=== PATIENT | female | born 1945 | race Caucasian/White ===

== ENCOUNTER → 2017-08-03 | Outpatient (CLI) | payer MEDICARE ==
[~2017-08-03] MED LIST: ATENOLOL25 MG PO; B12,B-12,B 12500 MC1 PO; MECLIZINE HCL25 M2 PO; ONDANSETRON H2 MG/ML IV; PINDOLOL5 MG PO; PREDNISONE10 MG PO; Zofran4 MG PO
== END | disposition home or self-care (01) ==
LOC: MAMMO 14:47
DX: Z12.31 Encounter for screening mammogram for malignant neoplasm of breast (principal)

== ENCOUNTER → 2017-08-17 | Outpatient (CLI) | payer MEDICARE | END | disposition home or self-care (01) | LOC: MAMMO 01:24 | DX: N64.89 Other specified disorders of breast (principal); R92.8 Other abnormal and inconclusive findings on diagnostic imaging of breast ==

== ENCOUNTER → 2018-01-05 | Outpatient (CLI) | payer MEDICARE | END | disposition home or self-care (01) | LOC: MAMMO 00:34 | DX: R92.8 Other abnormal and inconclusive findings on diagnostic imaging of breast (principal) ==

== ENCOUNTER → 2019-01-26 | Outpatient (CLI) | payer MEDICARE | END | disposition home or self-care (01) | LOC: RAD 00:29 → MAMMO 13:30 | DX: Z12.31 Encounter for screening mammogram for malignant neoplasm of breast (principal); M81.8 Other osteoporosis without current pathological fracture; R92.8 Other abnormal and inconclusive findings on diagnostic imaging of breast; N95.9 Unspecified menopausal and perimenopausal disorder; E55.9 Vitamin D deficiency, unspecified; M19.90 Unspecified osteoarthritis, unspecified site; M85.89 Other specified disorders of bone density and structure, multiple sites ==

== ENCOUNTER 2020-04-29 11:00 | Observation (INO) | payer MEDICARE ==
[~2020-04-29] VITALS: Ht 165.1 cm; Wt 74.9 kg
[2020-04-29 11:10] VITALS: BP 150/74
[2020-04-29 11:22] LABS: BASO # 0.1 10*3/uL (0.0-0.1); EOS # 0.1 10*3/uL (0.0-0.4); EOS % 2.6 % (1.0-4.0); LYMPH # 1.4 10*3/uL (1.3-4.4); LYMPH % 26.8 % (27.0-41.0); MEAN CELL VOLUME 89.6 fl (81.0-99.0); MEAN CORPUSCULAR HGB 29.9 pg (27.0-31.0); MEAN CORPUSCULAR HGB CONC 33.3 g/dl (33.0-37.0); MEAN PLATELET VOLUME 10.8 fl (9.6-12.3); MONO # 0.5 10*3/uL (0.1-1.0); MONO % 9.1 % (3.0-9.0); NEUT % 60.1 % (47.0-73.0); PLATELET COUNT AUTOMATED 196 10*3/uL (130-400); RED BLOOD COUNT 4.02 10*6/uL (4.10-5.10)
[2020-04-29] MEDS ORDERED: GOOD NEIGHBOR L10 MG PO (11:29)
[2020-04-29] MEDS ORDERED: BIOTIN 800 MCG1 EACH PO (11:30)
[2020-04-29 11:33] LABS: ACT PARTIAL THROMBO TIME 26.1 SECONDS (20.0-32.1)
[2020-04-29 11:38] LABS: LIPASE 131 U/L (73-393)
[2020-04-29 11:39] LABS: ALBUMIN 3.5 gm/dl (3.1-4.5); ALKALINE PHOSPHATASE 77 U/L (45-117); BUN 10 mg/dl (7-24); CHLORIDE 113 mmol/L (98-107); CREATININE 0.85 mg/dL (0.55-1.02); POTASSIUM 3.9 mmol/L (3.5-5.1); SGOT/AST 32 IU/L (3-35); SGPT/ALT 25 U/L (12-78); SODIUM 143 mmol/L (136-145); TOTAL PROTEIN 6.5 gm/dL (6.4-8.2)
[2020-04-29 11:42] LABS: TROPONIN I < 0.015 ng/ml (<0.045)
[2020-04-29 11:43] VITALS: BP 128/68
[2020-04-29 12:54] VITALS: BP 140/72
[2020-04-29 15:48] VITALS: BP 128/70
--- NOTE | 2020-04-29 16:15 | NUR ---
A 74, admitted to 5E, under the services of SHELLEY Odonnell DO with a diagnosis of CHEST PAIN R/O [place]. Chief complaint is CHEST PAIN. Patient arrived via stretcher from ER. Monitor applied. Initial assessment completed. Vital signs taken and recorded. SHELLEY ODONNELL DO notified of OBSERVATION admission to the unit. Orders received. See assessment for past medical history, medications and allergies. Patient and/or family oriented to unit. Clothing/patient valuable form completed. RAFAELA DC
[2020-04-29] MEDS ORDERED: FOSAMAX70 M1 PO (17:20)
[2020-04-29 17:35] VITALS: BP 140/68
[2020-04-29] MEDS ORDERED: MAGNESIUM500 MG PO (17:46)
[2020-04-29 20:00] VITALS: BP 139/68
--- NOTE | 2020-04-29 21:20 | NUR ---
PATIENT SITTING UP IN BED, PLEASANT AND APPROPRIATE SPEECH. DENIES SYMPTOMS OF CHEST PAIN, STATES THAT SHE HAS A BURNING SENSATION MID EPIGASTRIC AREA & ACROSS UPPER ABDOMEN BUT NO "PAIN" DENIES SOB ON ROOM AIR. AWARE OF PROCEDURE ECHO IN THE AM. CALL LIGHT WITHIN REACH.
[2020-04-30] VITALS: BP 132/65
--- NOTE | 2020-04-30 07:25 | NUR ---
ASSESSMENT COMPLETE AT THIS TIME. PT STILL COMPLAINS OF A "BURN" FEELING THAT IS LOCATED NEAR THE MIDDLE OF THE STERNUM AND RADIATES ALONG THE "BRA LINE". SHE IS NOT AWARE OF ANYTHING THAT MAKES IT WORSE OR BETTER. SHE VOICES NO OTHER COMPLAINTS AT THIS TIME. CALL LIGHT WITHIN REACH, WILL CONTINUE TO MONITOR
[2020-04-30 07:37] LABS: BASO % 0.6 % (0.0-1.0); EOS # 0.1 10*3/uL (0.0-0.4); EOS % 2.8 % (1.0-4.0); HEMATOCRIT 34.5 % (37.0-47.0); LYMPH # 1.6 10*3/uL (1.3-4.4); LYMPH % 31.9 % (27.0-41.0); MEAN CELL VOLUME 90.8 fl (81.0-99.0); MEAN CORPUSCULAR HGB 29.7 pg (27.0-31.0); MEAN CORPUSCULAR HGB CONC 32.8 g/dl (33.0-37.0); MEAN PLATELET VOLUME 11.2 fl (9.6-12.3); MONO # 0.5 10*3/uL (0.1-1.0); MONO % 9.1 % (3.0-9.0); NEUT # 2.7 10*3/uL (2.3-7.9); NEUT % 55.4 % (47.0-73.0); PLATELET COUNT AUTOMATED 181 10*3/uL (130-400); RED CELL DISTRI WIDTH 12.2 % (0-14.5); WHITE BLOOD COUNT 4.9 10*3/uL (4.8-10.8)
--- NOTE | 2020-04-30 07:54 | NUR ---
CALLED DR TIERNEY TO LET HIM KNOW PATIENTS HOME MEDS ARE UP TO DATE BUT NOTHING WAS CONTINUED.
[2020-04-30 08:07] LABS: ALBUMIN 3.2 gm/dl (3.1-4.5); BUN 10 mg/dl (7-24); CHLORIDE 112 mmol/L (98-107); CHOLESTEROL 177 mg/dL (<200); CREATININE 0.69 mg/dL (0.55-1.02); POTASSIUM 3.5 mmol/L (3.5-5.1); SGOT/AST 26 IU/L (3-35); SGPT/ALT 25 U/L (12-78); SODIUM 143 mmol/L (136-145); TOTAL PROTEIN 6.1 gm/dL (6.4-8.2); TRIGLYCERIDES 59 mg/dl (<150); VLDL CHOLESTEROL 12 mg/dL (6-40)
[2020-04-30 08:14] LABS: ALKALINE PHOSPHATASE 78 U/L (45-117); HDL CHOLESTEROL 77 mg/dl (40-60); LDL CHOLESTEROL 88 mg/dL (9-159)
[2020-04-30] MEDS ORDERED: TENORMIN25 MG PO (10:26)
--- NOTE | 2020-04-30 10:48 | NUR ---
IN PT ROOM GOING OVER DISCHARGE. IV IS REMOVED AT THIS TIME AND BILINGUAL [employer] TEACHER TAKEN OFF. WAITING FOR ECHO RESULTS BEFORE LEAVING. WILL AWAIT RESULTS
--- NOTE | 2020-04-30 12:15 | NUR ---
IN TO PATIENTS ROOM TO EXPLAIN THERE IS NO NEED TO STAY FOR ECHO RESULTS, UNLESS THE PATIENT WANTS TO. SHE STATES THAT SHE HAS THE PORTAL INFORMATION ON HER PHONE AND WILL GET THE RESULTS THAT WAY.
--- NOTE | 2020-04-30 12:20 | NUR ---
PT LEAVING FLOOR WITH ALL OF HER BELONINGS
== END 2020-04-30 12:20 | disposition home or self-care (01) ==
LOC: ED 11:00 → EDHOLD 13:40 → 5E 13:40 → EDHOLD 13:40 → 5E 13:56
PROVIDERS: Emergency Medicine; Student in an Organized Health Care Education/Training Program; ADMIT Student in an Organized Health Care Education/Training Program
DX: R07.89 Other chest pain (principal); I10 Essential (primary) hypertension; E87.8 Other disorders of electrolyte and fluid balance, not elsewhere classified; E83.41 Hypermagnesemia; E44.1 Mild protein-calorie malnutrition; M54.9 Dorsalgia, unspecified; G89.29 Other chronic pain; E66.3 Overweight; E53.8 Deficiency of other specified B group vitamins; I49.3 Ventricular premature depolarization; M81.0 Age-related osteoporosis without current pathological fracture

== ENCOUNTER → 2021-11-17 | Outpatient (CLI) | payer MEDICARE ==
[~2021-11-17] MED LIST changes: +BIOTIN 800 MCG1 EACH PO; +FOSAMAX70 M1 PO; +GOOD NEIGHBOR L10 MG PO; +MAGNESIUM500 MG PO; +TENORMIN25 MG PO
== END | disposition home or self-care (01) ==
LOC: COVID19 15:28
PROVIDERS: ATTEND Student in an Organized Health Care Education/Training Program
DX: Z20.822 Contact with and (suspected) exposure to COVID-19 (principal)

== ENCOUNTER 2023-08-13 23:06 | Emergency (ER) | payer OTHER, MEDICARE ==
[~2023-08-13] VITALS: Ht 162.5 cm; Wt 69.4 kg
== END 2023-08-14 03:36 | disposition home or self-care (01) ==
LOC: ED 23:06
DX: R07.89 Other chest pain (principal); I10 Essential (primary) hypertension; Z88.1 Allergy status to other antibiotic agents; Z88.8 Allergy status to other drugs, medicaments and biological substances; V89.2XXA Person injured in unspecified motor-vehicle accident, traffic, initial encounter; Y93.89 Activity, other specified; Y92.410 Unspecified street and highway as the place of occurrence of the external cause; Y99.8 Other external cause status